=== PATIENT | female | born 1980 | race Caucasian/White ===

== ENCOUNTER 2021-08-06 14:52 | Outpatient (CLI) | payer OTHER, SELFPAY ==
--- NOTE | ~2021-08-06 | XR_ITS ---
EXAMINATION: XR chest 2V 08/06/2021 15:25 INDICATION: Body aches. Covid. PROCEDURE: 2 view chest COMPARISON: No prior studies for comparison. FINDINGS: The lungs are clear. The cardiomediastinal silhouette is within normal limits. There are no pleural effusions. There is no pneumothorax suspected. IMPRESSION: 1: NO ACUTE CARDIOPULMONARY DISEASE. Reviewed, dictated and finalized at location A.
== END 2021-08-06 14:53 | disposition home or self-care (01) ==
LOC: ANHIMG 15:00
PROVIDERS: PCP Nurse Practitioner Family; Visit Provider Nurse Practitioner Family
DX: U07.1 COVID-19 (principal)
CPT/HCPCS: 71046

== ENCOUNTER 2021-08-10 14:59 | Outpatient (CLI) | payer OTHER, SELFPAY ==
--- NOTE | ~2021-08-10 | CT_ITS ---
EXAMINATION: CTA chest PE protocol EXAM DATE: 08/10/2021 15:26 INDICATION: Covid, Shortness of Breath . TECHNIQUE: Spiral CTA of the chest (pulmonary arteries) was performed with 100 cc Omnipaque 350 intr avenous contrast injection. Images were acquired during the pulmonary arterial phase. Coronal maxi mum intensity projection 3D-reconstructions were created by the technologist on dedicated workstation . Axial, coronal and sagittal reformatted images were reviewed. The dose-length product (DLP) for t his examination was 226.59 mGy-cm. The exposure was tailored according to patient size (auto mA exp osure control), and iterative reconstruction (ASIR) was used as additional dose reduction technique. Correlation is made to chest x-ray 08/06. FINDINGS: Pulmonary arteries are well opacified and without intraluminal filling defects. No thora cic aortic dissection. There is segmental amount of right lower lobe dependent airspace disease, sub segmental amount of left lower lobe airspace disease consistent with pneumonia. Additional nondepende nt scattered groundglass opacities, pneumonia. There are no pleural or pericardial effusions. Trac heobronchial tree is patent. There is no mediastinal, hilar or axillary lymphadenopathy. There is no pneumothorax. Heart normal in size. No evidence of coronary arterial calcification. Upper ab domen is unremarkable. There is thoracic spondylosis without osteoblastic or osteolytic lesions brandi ntified. IMPRESSION: 1. Bibasilar pneumonia. 2. No pulmonary emboli. Reviewed, dictated and finalized at location A.
== END 2021-08-10 15:00 | disposition home or self-care (01) ==
LOC: ANHIMG 15:02
PROVIDERS: PCP Nurse Practitioner Family; Visit Provider Nurse Practitioner Family
DX: U07.1 COVID-19 (principal); R06.02 Shortness of breath; J18.8 Other pneumonia, unspecified organism
CPT/HCPCS: 71275; Q9967

== ENCOUNTER 2025-03-15 07:46 | Outpatient (CLI) | payer BC, SELFPAY ==
--- OUTSIDE RECORDS SUMMARY | 2025-03-15 08:03 | XMS_ITS | Clinical Summary ---
Author Organization [facility] Address [address] [place] [id number] Care Team Providers Care Re Examiner Name Role Phone Kodak Lee MD Primary Care Provider [phone] Social History Tobacco Use Types Packs/Day Years Used Date Smoking Tobacco: Never Assessed Comments Unknown Sex and Gender Information Value Date Recorded Sex Assigned at Not on file Legal Sex Female 8:28 AM CDT Gender Identity Not on file Sexual Orientation Not on file Plan of Treatment Health Maintenance Due Date Last Done Comments Cervical Cancer Screening Pa p Smear (Age 30 to 64) Every 3 Years 1981 Annual Physical 1984 Hepatitis C 1999 DTaP, Tdap and Td Vaccines ( 1 - Tdap) 2000 Hepatitis B Vaccines (1 of 3 - 19+ 3-dose series) 2000 Cervical Cancer Screening Pa p with HPV Testing (Age 30 to 64) Every 5 Years 2011 Cervical Cancer Screening with HPV 2011 Mammogram Screening 2021 COVID-19 Vaccine (2023-2 5 season) 2024 HPV Vaccines Aged Out No longer eligi ble based on patient's age to complete this topic Meningococcal B Vaccine Aged Out No l onger eligible based on patient's age to complete this topic Meningococcal Vaccine Aged Out No fer jaime eligible based on patient's age to complete this topic Pneumococcal Vaccine: Pediat rics (0 to 5 Years) and At-Risk Patients (6 to 49 Years) Aged Out No longer eligible b ased on patient's age to complete this topic RSV Immunizations Under 20 Months Aged Out No longer eligible based on patient's age to complete this topic [place] [id number] [place] [address] Care Teams Re Examiner Relationship Specialty Start Date End Date Kodak Lee MD [address] [place] [address] PCP - General PEDIATRICS 06/04/24
[2025-03-15 08:50] LABS: CRP 0.5 mg/dL (<1.0)
[2025-03-15 09:22] LABS: Free T4 Free Thyroxine 0.97 ng/dL (0.78-2.19); Vitamin D 25 Hydroxy 31.7 ng/mL
[2025-03-16 12:09] LABS: Progesterone 1.2 ng/mL
[2025-03-17 02:37] LABS: CRP, High Sensitivity 4.9 mg/L
[2025-03-19 15:49] LABS: Insulin Level Total 10.4 uIU/mL
[2025-03-21 15:04] LABS: Testosterone Free 2.5 pg/mL (0.1-6.4); Testosterone Total 25 ng/dL (2-45)
== END 2025-03-15 07:47 | disposition home or self-care (01) ==
PROVIDERS: PCP Nurse Practitioner Family; Visit Provider Obstetrics & Gynecology
DX: N95.9 Unspecified menopausal and perimenopausal disorder (principal); R63.5 Abnormal weight gain
CPT/HCPCS: 36415; 82306; 82607; 82670; 83001; 83525; 84144; 84402; 84403; 84439; 84443; 86140; 86141